=== PATIENT | male | born 1965 | race African-American/Black ===

== ENCOUNTER → 2016-07-13 | Day surgery (SDC) | payer OTHER ==
[~2016-07-13] VITALS: Ht 188 cm; Wt 120.5 kg
[~2016-07-13] MED LIST: *HYDROmorphone PF 1 MG VIAL PERIprocedural Use ONLY ONE; ACETAMINOPHEN 1000 MG/100 ML VIAL IV SCH; ALDA2525 PO; ALLO100T PO; APREPITANT 40 MG CAP ONE; BACITRACIN TOP OINT 15 GM TUBE ONE; BUPIVACAINE/EPINEPHRINE 0.25% PF 30 ML VIAL ONE; CALC1CHW CHEW; CART120C2 PO; CLON.2 PO; ERGO50000 PO; FAMOTIDINE 20 MG/2 ML VIAL ONE; INSULIN HUMAN REGULAR 1,000 UNITS/10 ML VIAL SQ PRN; LACTATED RINGER'S 1000 ML IV SCH; METO50TA PO; METOPROLOL TARTRATE 25 MG TAB PO PRN; MIDAZOLAM HCL 2 MG/2 ML VIAL ONE; MULT1CAP PO; MULT1TAB84 PO; NEOSTIGMINE 3 MG/3 ML SYR IV ONE; ONDANSETRON HCL 4 MG/2 ML VIAL IV PUSH ONE; PRAV80 PO; PROPOFOL 200 MG/20 ML AMP IV ONE; PROT40TA PO; SODIUM CHLORID 0.9% 500 ML IV SCH; SPIR25TA3 PO; TELM1TAB56 PO; ceFAZolin 2 GM PREMIX 50 ML IV SCH; ePHEDrine/NS 25 MG/5 ML SYR IV ONE; fentaNYL CITRATE 250 MCG/5 ML AMP ONE
[2016-07-13 08:03] VITALS: BP 137/86; PULSE 68; RESP 16; TEMP 98.8; O2SAT 98
[2016-07-13 08:07] LABS: AUTOMATED NEUTROPHIL # 3.2 TH/MM3 (1.8-7.7); BASOPHIL % 0.6 % (0.0-2.0); EOSINOPHIL # 0.1 TH/MM3 (0-0.4); EOSINOPHIL % 1.1 % (0.0-4.0); HEMATOCRIT 39.7 % (39.0-51.0); HEMO FLAGS DIFF FINAL; LYMPH % 33.9 % (9.0-44.0); LYMPHOCYTE # 1.9 TH/MM3 (1.0-4.8); MEAN CELL VOLUME 89.3 FL (80.0-100.0); MEAN CORPUSCULAR HEMOGLOBIN 29.8 PG (27.0-34.0); MEAN CORPUSCULAR HGB CONC 33.4 % (32.0-36.0); MONO % 7.1 % (0.0-8.0); NEUT % 57.3 % (16.0-70.0); PLATELET COUNT 265 TH/MM3 (150-450); RED BLOOD COUNT 4.44 MIL/MM3 (4.50-5.90); RED CELL DISTRIBUTION WIDTH 13.6 % (11.6-17.2); WHITE BLOOD COUNT 5.5 TH/MM3 (4.0-11.0)
[2016-07-13 14:02] VITALS: BP 135/84; PULSE 88; RESP 16; TEMP 97.2; O2SAT 100
--- NOTE | 2016-08-05 10:35 | MP ---
cc: [facility] DATE OF SURGERY 07/13/2016 DATE OF 1965 PREOPERATIVE DIAGNOSIS Umbilical hernia POSTOPERATIVE DIAGNOSIS Umbilical hernia PROCEDURE Laparoscopic assisted umbilical hernia repair with Ventralex ST hernia patch 6-cm. SPECIMENS None COMPLICATIONS None OPERATION The patient was brought to the operating room, placed on operating table in the supine position. Bilateral sequential inflation devices placed on the lower extremities. General anesthesia instituted. Antibiotics initiated. The abdomen was prepped and draped sterilely. A point in the left upper quadrant anesthetized with quarter percent Marcaine with epinephrine. A skin incision was made. A 5 mm OptiView port placed under direct vision and pneumoperitoneum created. Under direct vision, a 5-mm left lower quadrant port was placed. The abdominal cavity was inspected and hernia identified. The falciform ligament was taken down using the cautery. At this point, the CO2 was released. A curvilinear incision was made below the umbilicus. It was taken through the subcutaneous tissue. The umbilical stalk was dissected. The hernia sac was excised. The Ventralex ST mesh was opened on the table. It was deployed into the peritoneal cavity, its tabs were secured to the fascia laterally with 2-0 Vicryl sutures. At this point, the CO2 was reinstituted. The abdominal cavity was inspected. The mesh laid well. There was no evidence of bowel between the mesh and the abdominal wall. The CO2 was released. The umbilical stalk was secured to the anterior rectus. The subcutaneous tissue approximated with 3-0 Vicryl. Skin edges approximated with 4-0 Monocryl. The abdominal wall was cleaned and a sterile dressing placed. The patient was awakened and taken to the recovery room. MD LIZETH Mclaughlin/SELIN /8:40 AM /10:24 AM
== END | disposition home or self-care (01) ==
LOC: HSDC 06:52
PROVIDERS: ATTEND Surgery
DX: K42.9 Umbilical hernia without obstruction or gangrene (principal); I10 Essential (primary) hypertension
CPT/HCPCS: 00750; 49652; 85025; C1781; J0131; J0690; J1170; J2250; J2405; J2710; J3010; J7120; J8501